=== PATIENT | male | born 1970 | race Caucasian/White ===

== ENCOUNTER 2022-10-13 12:09 | Emergency (ER) | payer BC ==
[~2022-10-13] VITALS: Ht 182.9 cm; Wt 85.3 kg
[2022-10-13 13:00] VITALS: BP_SYST 144
--- NOTE | 2022-10-13 13:00 | NUR ---
Patient to ER bed 7 to gown for evaluation. Side rails up. Report given to MAYDA MACIEL.
--- NOTE | 2022-10-13 13:00 | NUR ---
ER at bedside examining patient.
--- NOTE | 2022-10-13 13:05 | NUR ---
Pt bib self from home. chief complaint laceration to right hand second digit with controlled bleeding. Pt is [id number], Pt states was working with yard tools and a chain shredded second digit.
[2022-10-13] MEDS ORDERED: BACITRACIN 1 GM OINT TP ONE (13:15)
[2022-10-13] MEDS ORDERED: LIDOCAINE 1% 10 MG/ML, 20 ML MDV INJ ONE (13:15)
--- NOTE | 2022-10-13 13:15 | NUR ---
MD Rashid sutures 3 stitches to pt right hand second digit.
--- NOTE | 2022-10-13 13:58 | NUR ---
Pt cleansed and bandaged with normal saline, bacitracin, tubular gauze wet to dry dressing. Pt cap refill return less than 2 seconds.
[2022-10-13 14:33] VITALS: BP_SYST 144
--- NOTE | 2022-10-13 14:33 | NUR ---
Patient given written and verbal discharge instructions and verbalizes understanding. ER MD discussed with patient the results and treatment provided. Patient in stable condition. ID arm band removed. Opportunity for questions provided and answered. Medication side effect fact sheet provided.
== END 2022-10-13 14:33 | disposition home or self-care (01) ==
LOC: SED 12:09
DX: S61.211A Laceration without foreign body of left index finger without damage to nail, initial encounter (principal); Z79.899 Other long term (current) drug therapy; W29.3XXA Contact with powered garden and outdoor hand tools and machinery, initial encounter; Y93.89 Activity, other specified; Y92.89 Other specified places as the place of occurrence of the external cause; Y99.8 Other external cause status
CPT/HCPCS: 73140-TC; 99283

== ENCOUNTER 2022-10-15 09:07 | Emergency (ER) | payer BC ==
[~2022-10-15] VITALS: Ht 182.9 cm; Wt 102.1 kg
[2022-10-15 09:15] VITALS: BP_SYST 129
[2022-10-15] MEDS ORDERED: BACITRACIN 1 GM OINT TP ONE (10:29)
[2022-10-15] MEDS ORDERED: BACITRACIN ZINC 15 GM TOPICAL OINTMENT TP ONE (10:30)
[2022-10-15 10:50] VITALS: BP_SYST 140
== END 2022-10-15 10:50 | disposition home or self-care (01) ==
LOC: SED 09:07
DX: Z48.00 Encounter for change or removal of nonsurgical wound dressing (principal); I10 Essential (primary) hypertension; Z79.899 Other long term (current) drug therapy
CPT/HCPCS: 99282